=== PATIENT | female | born 1990 | race American Indian/Alaskan Native ===

== ENCOUNTER 2017-06-21 13:18 | Inpatient (IN) | payer MEDICAID ==
[2017-06-21] MEDS ORDERED: LACTATED RINGERS 2,000 ML ONE (14:03)
[2017-06-21] MEDS ORDERED: ePHEDrine SULFATE IV PRN (14:08)
[2017-06-21] MEDS ORDERED: STADOL IV PRN (14:08)
[2017-06-21] MEDS ORDERED: BRETHINE SUB-Q PRN (14:08)
[2017-06-21] MEDS ORDERED: BRETHINE IVP PRN (14:08)
[2017-06-21] MEDS ORDERED: NARCAN 0.4 MG/1 ML IV PRN (14:08)
[2017-06-21] MEDS ORDERED: POLYCILLIN/NS 2 GM/100 ML 2 GM/100 ML BAG IV ONE ×2 (14:08→14:09)
[2017-06-21] MEDS ORDERED: XYLOCAINE 2% INFILTRATI ONE (14:08)
[2017-06-21] MEDS ORDERED: MINERAL OIL PO PRN (14:08)
--- NOTE | 2017-06-21 14:27 | History and Physical Report ---
History of Present Illness Date of examination: 06/21/17 Date of admission: 06/21/17 13:18 Chief complaint: Sent from office due to advanced cervical dilatation. 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) Family/Genetic History: cancer (Mother at age 46 due to Lung Ca) Social history: no significant social history, single - Obstetrical History Expected Date of Delivery: 06/22/17 Actual Gestation: 39 Week(s) 6 Day(s) : 2 Para: 1 Hx # Term Pregnancies: 1 Number of Living Children: 1 #1 Gender: Female year: Birthweight: 2.892 kg Method of Delivery: Vaginal Complications: none Medications and Allergies Allergies Allergy/AdvReac Type Severity Reaction Status Date / Time No Known Allergies Allergy Verified 05/15/14 22:28 Home Medications Medication Instructions Recorded Confirmed Last Taken Type Ciprofloxacin [Cipro] 500 mg PO Q12H #14 ml 05/16/14 Unknown Rx Doxycycline [Vibramycin CAP] 100 mg PO BID #20 capsule 05/16/14 Unknown Rx HYDROcodone/APAP 7.5-325 [Cecil 1 each PO Q6HR PRN #20 tablet 05/16/14 Unknown Rx 7.5/325 mg] Ibuprofen [Motrin] 600 mg PO Q8H PRN #50 tablet 05/16/14 Unknown Rx Ondansetron [Zofran] 4 mg PO Q6HR PRN #20 tablet 05/16/14 Unknown Rx Active Meds: Active Medications Butorphanol Tartrate (Stadol) 2 mg IV Q2H PRN PRN Reason: Pain , Severe (7-10) Ampicillin Sodium (Polycillin/Ns 1 Gm/50 Ml) 1 gm in 50 mls @ 100 mls/hr IV Q4HR [place] PRN Reason: Protocol Ampicillin Sodium (Polycillin/Ns 2 Gm/100 Ml) 2 gm in 100 mls @ 100 mls/hr IV ONCE ONE PRN Reason: Protocol Stop: 06/21/17 15:07 Lactated Ringer's (Lactated Ringers) 1,000 mls @ 125 mls/hr IV DIRECT [place] Oxytocin/Sodium Chloride (Pitocin/Ns 20 Unit/1000ml Drip) 20 units in 1,000 mls @ 125 mls/hr IV DIRECT [place] Oxytocin/Sodium Chloride (Pitocin/Ns 30 Unit/500ml) 30 units in 500 mls @ 4 mls /hr IV TITR [place] PRN Reason: Protocol Mineral Oil (Mineral Oil) 30 ml PO QHS PRN PRN Reason: Constipation Naloxone HCl (Narcan 0.4 Mg/1 Ml) 0.1 mg IV Q2MIN PRN PRN Reason: Res Rate </= 8 or 02 SAT < 92% Review of Systems All systems: negative - Vital Signs Vital signs: Vital Signs Pulse BP 63 129/72 06/21/17 13:43 06/21/17 13:43 Temp Pulse Resp BP Pulse Ox 71 124/72 06/21/17 14:13 06/21/17 14:13 - Physical Exam Breasts: Positive: normal Cardiovascular: Regular rate Lungs: Positive: Clear to auscultation, Normal air movement Abdomen: Positive: normal appearance, soft, normal bowel sounds Genitourinary (Female): Positive: normal external genitalia, normal perenium Vagina: Positive: normal moisture Uterus: Positive: enlarged Anus/Rectum: Positive: normal perianal skin Extremities: Positive: normal - Obstetrical FHR: category 1 Uterine Contraction Monitor Mode: External Cervical Dilatation: 9 (Moderate amount of clear fluid upon AROM at 1421) Cervical Effacement Percentage: 100 station: -1 Uterine Contraction Pattern: Regular Uterine Contraction Intensity: Moderate Results All other labs normal. Assessment and Plan A: IUP @ 39 6/7 Weeks Category I Tracing Active Labor GBS Positive P: Admit to [facility] per Routine Orders GBS prophylaxis AROM
[2017-06-21 14:46] LABS: Hematocrit 33.4 % (30.3-42.9); Hemoglobin 11.1 gm/dl (10.1-14.3); Mean Corpuscular HGB Conc 33 % (30-34); Mean Corpuscular Hemoglobin 30 pg (28-32); Mean Corpuscular Volume 90 fl (79-97); Platelet Count 213 K/mm3 (140-440); Red Blood Count 3.69 M/mm3 (3.65-5.03); White Blood Count 10.9 K/mm3 (4.5-11.0)
[2017-06-21] MEDS ORDERED: SUBLIMAZE ONE (14:49)
[2017-06-21] MEDS ORDERED: LACTATED RINGERS 1,000 ML IV SCH (15:00)
[2017-06-21] MEDS ORDERED: PITOCin/NS 30 UNIT/500ML 30 UNITS/500 ML BAG IV SCH (15:00)
[2017-06-21] MEDS ORDERED: PITOCin/NS 20 UNIT/1000ML DRIP 20 UNITS/1,000 ML BAG IV SCH (15:00)
[2017-06-21] MEDS ORDERED: LANSINOH TP PRN (15:06)
[2017-06-21] MEDS ORDERED: DULCOLAX PR PRN (15:06)
[2017-06-21] MEDS ORDERED: NORCO 5/325 PO PRN (15:06)
[2017-06-21] MEDS ORDERED: PHENERGAN PR PRN (15:06)
[2017-06-21] MEDS ORDERED: TUCKS PAD TP PRN (15:06)
[2017-06-21] MEDS ORDERED: MILK OF MAGNESIA PO PRN (15:06)
[2017-06-21] MEDS ORDERED: BENADRYL PO PRN (15:06)
--- NOTE | 2017-06-21 15:12 | Procedure Note ---
OB Delivery Note - Delivery Date of Delivery: 06/21/17 (1455) Surgeon: FRANSISCO ANDERSON Estimated blood loss: 200cc - Vaginal Delivery presentation: vertex Delivery position: OA Intrapartum events: none Delivery induction: none Delivery augmentation: rupture of membranes Delivery monitor: external FHT, external uterine Route of delivery: Delivery cord: 3 umbilical vessels Episiotomy: none Delivery laceration: none Anesthesia: none Delivery comments: of a live 6'14 male over a intact perineum under IV pain control with Apgars of 8 and 9 at 1455 on 06/21/2017. Infant directly to maternal abd/ chest, skin to skin contact. Spontaneous delivery of placenta complete and intact with Adame side presenting at 1500. Fundus is firm and midline located 4 below the U. Lochia is scant. Delayed cord clamping and cutting; Cord cut by the father of the baby. Placenta discarded. GBS prophylaxis x 1. - A Infant Gender: Male (14)
[2017-06-21] MEDS ORDERED: SODIUM CHLORIDE FLUSH SYRINGE 10 ML IV SCH (16:00)
[2017-06-21] MEDS ORDERED: POLYCILLIN/NS 1 GM/50 ML 1 GM/50 ML BAG IV SCH (18:09)
[2017-06-21] MEDS: MOTRIN PO SCH (23:07)
[2017-06-22 05:15] LABS: Hematocrit 32.1 % (30.3-42.9); Hemoglobin 10.6 gm/dl (10.1-14.3)
[2017-06-22] MEDS: MOTRIN PO SCH ×2 (06:00→17:44)
--- NOTE | 2017-06-22 10:06 | Progress Note ---
Assessment and Plan A: day 1 S/P spontaneous vaginal delivery. . Mild anemia. Normal course. P: Discharge patient home this afternoon when baby is able to go. discharge instructions and warning signs were discussed with patient in detail. Discussed with patient activity restrictions and need to avoid IC for 6 weeks. Advised patient to call [facility]NIC[facility] office on Saturday and make an appointment to be seen in 6 weeks. Patient voiced understanding of all of the above instructions. Subjective - Subjective Date of service: 06/22/17 Principal diagnosis: day 1 S/P spontaneous vaginal delivery Interval history: day 1 S/P spontaneous vaginal delivery of liveborn male infant over intact perineum on 06/21/17. Patient is and she feels this is going well. She is voiding without difficulty and ambulating well. She is tolerating a regular diet. She reports small amount of lochia and no large clots. Patient denies headache, visual disturbance, cough, shortness of breath, chest pain, abdominal pain, perineal pain, heavy bleeding, foul smelling discharge, leg pain, or symptoms of depression. She plans to use OCPs for contraception when the baby is 6 weeks old and when her milk supply is well established. Patient reports: pain well controlled, ambulating normally Objective - Vital Signs Latest vital signs: Vital Signs Temp Pulse Resp BP BP 06/22/17 07:29 97.8 F 76 20 110/70 06/22/17 06:00 18 06/22/17 01:40 98.5 F 69 18 100/54 06/21/17 23:07 18 06/21/17 23:04 18 06/21/17 21:40 98.4 F 84 18 123/74 06/21/17 17:45 98.3 F 61 121/69 06/21/17 16:58 59 L 141/60 06/21/17 16:43 59 L 147/83 06/21/17 16:27 55 L 146/77 06/21/17 16:12 61 127/71 06/21/17 15:58 65 126/69 06/21/17 15:43 64 132/74 06/21/17 15:28 71 134/73 06/21/17 15:10 75 129/66 06/21/17 14:58 70 154/79 06/21/17 14:44 71 149/67 06/21/17 14:31 69 112/67 06/21/17 14:13 71 124/72 06/21/17 14:00 98.0 F 18 06/21/17 13:58 67 130/72 06/21/17 13:43 63 129/72 Intake and Output 06/21/17 06/22/17 06/22/17 22:59 06:59 14:59 Intake Total 240 560 Output Total 350 950 Balance -110 -390 Intake: Intake, Free Water 240 560 Output: Urine 350 950 Void 350 950 Other: Total, Output Amount 350 600 Estimated Blood Loss 200 - Exam Breasts: Present: deferred Cardiovascular: Present: Regular rate, No murmurs Abdomen: Present: normal appearance, soft. Absent: distention, tenderness, guarding Uterus: Present: normal, fundal height below umbilicus. Absent: bogginess, tenderness Extremities: Present: normal. Absent: tenderness, edema - Labs Labs: Abnormal lab results 06/21/17 Range/Units 14:25 RDW 13.0 L (13.2-15.2) %
--- NOTE | 2017-06-22 10:14 | Discharge Summary ---
Providers - Providers Date of Admission: 06/21/17 13:18 Date of discharge: 06/22/17 Attending physician: Dr. Nicholas None Primary care physician: RUDY NUNEZ MD Hospitalization Reason for admission: active labor, IUP at term Delivery: Episiotomy: none Laceration: none Other procedures: none complications: none Discharge diagnosis: IUP at term delivered [place] baby: male Pertinent studies: Labs Hospital course: Normal hospital course. Condition at discharge: Good Disposition: DC-01 TO HOME OR SELFCARE - Discharge Diagnoses (1) Term delivered Status: Acute Plan - Provider Discharge Summary Activity: no sex for 6 weeks, no heavy lifting 4 weeks, no strenuous exercise Diet: routine Instructions: routine Additional instructions: [] Smoking cessation referral if applicable(refer to patient education folder for contact #) [] Refer to [facility] Booklet Call your doctor immediately for: * Fever > 100.4 * Heavy vaginal bleeding ( >1 pad per hour) * Severe persistent headache * Shortness of breath * Reddened, hot, painful area to leg or breast * Drainage or odor from incision. - Follow up plan Follow up: RUDY NUNEZ MD [Primary Care Provider] - 6 Weeks
[2017-06-23] MEDS: MOTRIN PO SCH ×2 (00:23→05:26)
--- NOTE | 2017-06-23 08:38 | Progress Note ---
Assessment and Plan A: day 2 S/P spontaneous vaginal delivery. P: Discharge home today when baby is able to go. discharge instructions and warning signs discussed with patient. Advised patient to follow up in 6 weeks at [facility]. - Patient Problems (1) Term delivered Current Visit: Yes Status: Acute Subjective - Subjective Date of service: 06/23/17 Principal diagnosis: day 2 S/P spontaneous vaginal delivery Interval history: day 2 S/P spontaneous vaginal delivery. Patient did not leave yesterday as previously planned because baby had to stay overnight last night. Patient continues to do well. Patient is voiding without difficulty, ambulating well, tolerating a regular diet. Patient denies headache, cough, chest pain, shortness of breath, abdominal pain, heavy vaginal bleeding, foul smelling discharge, leg pain, symptoms of depression. Patient desires discharge today. Patient reports: appetite normal, voiding normally, pain well controlled, ambulating normally : doing well Objective - Vital Signs Latest vital signs: Vital Signs Temp Pulse Resp BP 06/23/17 01:00 98.4 F 70 18 108/52 06/22/17 15:58 98.3 F 80 18 114/80 06/22/17 11:29 98.5 F 80 20 100/80 Intake and Output 06/22/17 06/23/17 06/23/17 22:59 06:59 14:59 Intake Total 480 480 Balance 480 480 Intake: Oral 240 Intake, Free Water 240 480 Other: Voiding Method Toilet # Voids 1 Void 1 1 - Exam Breasts: Present: deferred Cardiovascular: Present: Regular rate, No murmurs Lungs: Present: Clear to auscultation Abdomen: Present: normal appearance, soft. Absent: distention, tenderness, guarding Uterus: Present: normal, firm, fundal height below umbilicus Extremities: Present: normal. Absent: edema
--- NOTE | 2017-06-23 08:47 | Discharge Summary ---
Providers - Providers Date of Admission: 06/21/17 13:18 Date of discharge: 06/23/17 Attending physician: Dr. Nicholas None Primary care physician: RUDY NUNEZ MD Hospitalization Reason for admission: active labor Delivery: Episiotomy: none Laceration: none Other procedures: none complications: none Discharge diagnosis: IUP at term delivered [place] baby: male Pertinent studies: Labs Hospital course: Normal hospital course. Condition at discharge: Good Disposition: DC-01 TO HOME OR SELFCARE - Discharge Diagnoses (1) Term delivered Status: Acute Plan - Provider Discharge Summary Activity: no sex for 6 weeks, no heavy lifting 4 weeks, no strenuous exercise Diet: routine Instructions: routine Additional instructions: [] Smoking cessation referral if applicable(refer to patient education folder for contact #) [] Refer to [employer]'s [facility] Booklet Call your doctor immediately for: * Fever > 100.5 * Heavy vaginal bleeding ( >1 pad per hour) * Severe persistent headache * Shortness of breath * Reddened, hot, painful area to leg or breast * Drainage or odor from incision. - Follow up plan Follow up: RUDY NUNEZ MD [Primary Care Provider] - 6 Weeks
[2017-06-23 16:12] VITALS: BP 118/71
== END 2017-06-23 15:42 | disposition home or self-care (01) | DRG 775 ==
LOC: LD 13:18 → OB 17:51
PROVIDERS: ADMIT Obstetrics & Gynecology; ATTEND Obstetrics & Gynecology
PROC: 10E0XZZ Delivery of Products of Conception, External Approach (ICD-10-PCS; principal; 2017-06-21)
DX: O99.824 Streptococcus B carrier state complicating childbirth (principal); Z37.0 Single live birth; Z80.1 Family history of malignant neoplasm of trachea, bronchus and lung; Z3A.39 39 weeks gestation of pregnancy; O99.03 Anemia complicating the puerperium; D64.9 Anemia, unspecified
CPT/HCPCS: 36415; 85014; 85018; 85027; 86592; 86850; 86900; 86901; J0290; J2590; J3010; J7120